=== PATIENT | female | born 1960 ===

== ENCOUNTER 2018-08-24 00:23 | Emergency (ER) | payer SELFPAY ==
--- NOTE | 2018-08-24 01:07 | ED PDOC ---
HPI: Chest Pain Time Seen by Provider: 08/24/18 00:40 Chief Complaint (Nursing): Palpitations Chief Complaint (Provider): Palpitations History Per: Patient History/Exam Limitations: no limitations Current Symptoms Are (Timing): Better Additional Complaint(s): Suze Chauhan, a 57 year old female with no significant past medical history, presents to the ED complaining of acute sense of palpitations and generalized shakiness. She states she felt cold. She reports she drank warm water and took Advil and feels better. Patient denies cough, shortness of breath, fever, chest pain, nausea, vomiting, and diarrhea. PCP: Sam Khalil Past Medical History Reviewed: Historical Data, Nursing Documentation, Vital Signs Vital Signs: Last Vital Signs Temp 98.9 F 08/24/18 00:30 Pulse 80 08/24/18 00:30 Resp 16 08/24/18 00:30 BP 129/91 H 08/24/18 00:30 Pulse Ox 99 08/24/18 00:30 - Medical History PMH: HTN, Hypercholesterolemia - Family History Family History: States: Unknown Family Hx - Social History Current smoker - smoking cessation education provided: No Alcohol: None Drugs: Denies - Home Medications Home Medications: Ambulatory Orders Medication Instructions Recorded Guaifenesin/Pseudoephedrne HCl 1 ter PO BID #10 ter 10/05/14 [Mucinex D 1200 mg-120 mg] Benzonatate [Tessalon Perles] 100 mg PO TID PRN #30 sgl 10/07/14 Naproxen [Naprosyn] 500 mg PO BID PRN #30 tab 10/07/14 Polyethylene Glycol/Polyvinyl 1 appl OP QID #1 bottle 07/05/15 [Artificial Tears] valACYclovir [Valtrex] 1 gm PO TID #30 tab 07/05/15 - Allergies Allergies/Adverse Reactions: Allergies Allergy/AdvReac Type Severity Reaction Status Date / Time No Known Allergies Allergy Verified 10/05/14 15:24 Review of Systems ROS Statement: Except As Marked, All Systems Reviewed And Found Negative Constitutional: Negative for: Fever Cardiovascular: Positive for: Palpitations. Negative for: Chest Pain Respiratory: Negative for: Cough, Shortness of Breath Gastrointestinal: Negative for: Nausea, Vomiting, Diarrhea Physical Exam - Reviewed Nursing Documentation Reviewed: Yes Vital Signs Reviewed: Yes - Physical Exam Appears: Positive for: Well, Non-toxic, No Acute Distress Head Exam: Positive for: ATRAUMATIC, NORMAL INSPECTION, NORMOCEPHALIC Skin: Positive for: Normal Color, Warm, DRY Eye Exam: Positive for: EOMI, Normal appearance, PERRL Cardiovascular/Chest: Positive for: Regular Rate, Rhythm. Negative for: Murmur Respiratory: Positive for: Normal Breath Sounds. Negative for: Respiratory Distress Extremity: Positive for: Normal ROM. Negative for: Deformity Neurologic/Psych: Positive for: Alert, Oriented. Negative for: Motor/Sensory Deficits - Laboratory Results Result Diagrams: 08/24/18 01:10 08/24/18 01:10 - ECG O2 Sat by Pulse Oximetry: 99 (RA) Pulse Ox Interpretation: Normal Medical Decision Making Medical Decision Making: Time: 40 Initial Impression: 57 year old female with nonspecific palpitations Initial Plan: --labs --EKG 0313 --Labs and EKG reviewed and showed no clinically significant abnormalities. Patient has been asymptomatic since arrival to ED. Patient is stable for disc harge Upon provider reevaluation patient is feeling better, is medically stable, and requires no further treatment in the ED at this time. Patient will be discharged home. Counseling was provided and all questions were answered regarding diagnosis. There is agreement to discharge plan. Return if symptoms persist or worsen. Scribe Attestation: Documented by Heriberto Simmons, acting as a scribe for Orlando Marks MD. Provider Scribe Attestation: All medical record entries made by the Scribe were at my direction and personally dictated by me. I have reviewed the chart and agree that the record accurately reflects my personal performance of the history, physical exam, medical decision making, and the department course for this patient. I have also personally directed, reviewed, and agree with the discharge instructions and disposition. Disposition - Clinical Impression Clinical Impression: Anxiety attack - Patient ED Disposition Is Patient to be Admitted: No - Disposition Disposition Time: 03:13 Condition: IMPROVED Instructions: Panic Disorder Forms: [facility] (Khmer) Print Language: ROMANSH
[2018-08-24 01:34] LABS: BASO # 0.1 K/uL (0.0-0.2); BASO % 0.7 % (0.0-2.0); EOS # 0.1 K/uL (0.0-0.7); EOS % 0.9 % (0.0-4.0); HEMOGLOBIN 13.8 g/dL (12.0-16.0); LYMPH # 3.2 K/uL (1.0-4.3); MEAN CELL VOLUME 90.1 fl (81.0-99.0); MEAN CORPUSCULAR HEMOGLOBIN 30.3 pg (27.0-31.0); MEAN CORPUSCULAR HGB CONC 33.6 g/dL (33.0-37.0); MEAN PLATELET VOLUME 7.2 fl (7.2-11.7); MONO # 0.5 K/uL (0.0-0.8); MONO % 6.5 % (0.0-10.0); NEUT # 4.2 K/uL (1.8-7.0); NEUT % 51.9 % (50.0-75.0); RBC 4.54 Mil/uL (3.80-5.20); WHITE BLOOD COUNT 8.1 K/uL (4.8-10.8)
[2018-08-24 01:44] LABS: ALB/GLOB RATIO 1.4 (1.0-2.1); ALBUMIN 4.3 g/dL (3.5-5.0); ALT/SGPT 40 U/L (9-52); AST/SGOT 29 U/L (14-36); BLOOD UREA NITROGEN 9 mg/dl (7-17); CALCIUM 9.4 mg/dL (8.4-10.2); GFR NON-AFRICAN AMERICAN > 60
[2018-08-24 04:08] VITALS: BP 101/56; PULSE 64; RESP 17; TEMP 97.9; O2SAT 100
--- NOTE | 2018-08-24 12:42 | CARD ---
APPROVED REPORT Date of service: 08/24/2018 EKG Measurement Heart [id number] <Conclusion> Normal sinus rhythm Normal ECG
== END 2018-08-24 04:16 | disposition home or self-care (01) ==
LOC: H.ER 00:23
DX: F41.0 Panic disorder [episodic paroxysmal anxiety] (principal); I10 Essential (primary) hypertension; E78.00 Pure hypercholesterolemia, unspecified